=== PATIENT | male | born 1950 | race Caucasian/White ===

== ENCOUNTER → 2017-09-26 | Outpatient (CLI) | payer OTHER, MEDICARE | LOC: FIMAGING 07:59 | PROVIDERS: ATTEND Internal Medicine Critical Care Medicine | DX: J43.2 Centrilobular emphysema (principal); I25.10 Atherosclerotic heart disease of native coronary artery without angina pectoris ==

== ENCOUNTER → 2017-10-04 | Outpatient (CLI) | payer OTHER, MEDICARE | LOC: BMCIMAGING 11:20 | PROVIDERS: ATTEND Family Medicine | DX: M79.642 Pain in left hand (principal) ==

== ENCOUNTER → 2017-12-30 | Outpatient (CLI) | payer OTHER, MEDICARE | LOC: BMCIMAGING 09:40 | PROVIDERS: ATTEND Orthopaedic Surgery Hand Surgery | DX: M11.842 Other specified crystal arthropathies, left hand (principal) ==

== ENCOUNTER 2018-06-07 06:18 | Emergency (ER) | payer OTHER, MEDICARE ==
[2018-06-07] MEDS ORDERED: NS 1,000 ML IV ONE (06:29)
[2018-06-07 07:00] LABS: PLATELET COUNT 254 10^3/uL (150-400)
--- NOTE | 2018-06-07 07:16 | EDPHY ---
H & P Time Seen by Provider: 06/07/18 07:08 HPI/ROS: CHIEF COMPLAINT: right flank pain HISTORY OF PRESENT ILLNESS: The patient is a 67-year-old male with a history of COPD who presents emergency department with right flank pain. His pain started around 5:00 a.m.. He described pain in his right flank radiating to the front of his abdomen. It does go into his right groin. He has no dysuria frequency. No hematuria. It is not worse with movement. He has no weakness or numbness. He has no previous back injury. He did not sustain any trauma. He has had no previous kidney stones. The no fevers or chills. No cough or shortness of breath. REVIEW OF SYSTEMS: 10 systems were reveiwed and are negative with the exception of the elements mentioned in the history of present illness. Past Medical/Surgical History: Includes COPD Past surgical history: Noncontributory Social history: Patient smokes Smoking Status: Light smoker Physical Exam: 36.8, 140/77, 71, 17, 92% on room GENERAL: Well-appearing, in no acute distress, alert. HEENT: Eyes normal to inspection, normal pharynx, no signs of dehydration. NECK: Normal, supple. RESPIRATORY: Clear to auscultation bilaterally, no rales, rhonchi or wheezing. CVS: Regular rate and rhythm, no rubs, murmurs, or gallops. ABDOMEN: Soft, nontender, nondistended, no organomegaly. BACK: Normal to inspection, no CVA tenderness. SKIN: Normal color, no rash, warm, dry. No pallor. EXTREMITIES: No pedal edema, no calf tenderness, no Homans sign or cords, no joint swelling. NEURO/PSYCH: Alert and oriented, normal mood and affect, normal motor sensory exam. Constitutional: Initial Vital Signs Temperature (C) 36.8 C 06/07/18 06:21 Heart Rate 71 06/07/18 06:21 Respiratory Rate 17 06/07/18 06:21 Blood Pressure 140/77 H 06/07/18 06:21 O2 Sat (%) 92 06/07/18 06:21 O2 Delivery Mode Room Air Allergies/Adverse Reactions: No Known Allergies Allergy (Unverified 06/07/18 06:21) Home Medications: Medication Instructions Recorded Tamsulosin HCl [Flomax] 0.4 mg PO DAILY #4 cap 06/07/18 oxyCODONE/APAP 5/325 [Percocet 1 - 2 tab PO Q4PRN PRN #11 tab 06/07/18 5/325 (*)] Medical Decision Making ED Course/Re-evaluation: In the emergency department discussed possible etiologies with the patient. I answered all of his questions. IV was placed. Laboratory studies were obtained. Patient was given Toradol 30 mg IV. The patient consented CT imaging. Patient's UA reveals red cells. White count and hematocrit are normal. Chemistry is pending. The CT: Please refer the dictated report by Dr. So. Patient has a 5 mm stone just above the right UVJ. There is mild hydro. I discussed the results with the patient. I answered all his questions. On recheck the patient had no complaints. His abdominal and flank pain have resolved. Abdomen is soft, nontender nondistended. I discussed the diagnosis of kidney stone and expectations. The patient will be discharged with Flomax and Percocet. He understands to take ibuprofen 3 times daily. He was given a Flomax prior to leaving the emergency department. Differential Diagnosis: My differential includes but is not limited to kidney stone, urinary tract infection, pyelonephritis, pneumonia, pulmonary embolus, small-bowel obstruction , perforation, cholecystitis, cholangitis, pancreatitis - Data Points Laboratory Results: Laboratory Results 06/07/18 06:48 06/07/18 Unknown 06/07/18 06/07/18 06/07/18 Unknown 06:48 06:45 WBC 8.14 10^3/uL 10^3/uL (3.80-9.50) RBC 5.65 10^6/uL 10^6/uL (4.40-6.38) Hgb 17.5 g/dL g/dL (13.7-17.5) Hct 52.2 % H % (40.0-51.0) MCV 92.4 fL fL (81.5-99.8) MCH 31.0 pg pg (27.9-34.1) MCHC 33.5 g/dL g/dL (32.4-36.7) RDW 13.8 % % (11.5-15.2) Plt Count 254 10^3/uL 10^3/uL (150-400) MPV 8.9 fL fL (8.7-11.7) Neut % (Auto) 50.0 % % (39.3-74.2) Lymph % (Auto) 36.7 % % (15.0-45.0) Yell % (Auto) 10.0 % % (4.5-13.0) Eos % (Auto) 2.6 % % (0.6-7.6) Baso % (Auto) 0.5 % % (0.3-1.7) Nucleat RBC Rel Count 0.0 % % (0.0-0.2) Absolute Neuts (auto) 4.07 10^3/uL 10^3/uL (1.70-6.50) Absolute Lymphs (auto) 2.99 10^3/uL 10^3/uL (1.00-3.00) Absolute Monos (auto) 0.81 10^3/uL H 10^3/uL (0.30-0.80) Absolute Eos (auto) 0.21 10^3/uL 10^3/uL (0.03-0.40) Absolute Basos (auto) 0.04 10^3/uL 10^3/uL (0.02-0.10) Absolute Nucleated RBC 0.00 10^3/uL 10^3/uL (0-0.01) Immature Gran % 0.2 % % (0.0-1.1) Immature Gran # 0.02 10^3/uL 10^3/uL (0.00-0.10) Sodium 140 mEq/L mEq/L (135-145) Potassium 4.6 mEq/L mEq/L (3.5-5.2) Chloride 107 mEq/L mEq/L (97-110) Carbon Dioxide 26 mEq/l mEq/l (22-31) Anion Gap 7 mEq/L mEq/L (6-14) BUN 16 mg/dL mg/dL (7-23) Creatinine 0.8 mg/dL mg/dL (0.7-1.3) Estimated GFR > 60 Glucose 132 mg/dL H mg/dL (70-100) Calcium 9.2 mg/dL mg/dL (8.5-10.4) Total Bilirubin Pending Conjugated Bilirubin Pending Unconjugated Bilirubin Pending AST Pending ALT Pending Alkaline Phosphatase Pending Total Protein Pending Albumin Pending Lipase Pending Urine Color Urine Appearance Urine pH Ur Specific [place] Urine Protein Urine Ketones Urine Blood Urine Nitrate Urine Bilirubin Urine Urobilinogen Ur Leukocyte Esterase Urine RBC Urine WBC Ur Epithelial Cells Urine Mucus Urine Glucose 06/07/18 06:30 WBC RBC Hgb Hct MCV MCH MCHC RDW Plt Count MPV Neut % (Auto) Lymph % (Auto) Yell % (Auto) Eos % (Auto) Baso % (Auto) Nucleat RBC Rel Count Absolute Neuts (auto) Absolute Lymphs (auto) Absolute Monos (auto) Absolute Eos (auto) Absolute Basos (auto) Absolute Nucleated RBC Immature Gran % Immature Gran # Sodium Potassium Chloride Carbon Dioxide Anion Gap BUN Creatinine Estimated GFR Glucose Calcium Total Bilirubin Conjugated Bilirubin Unconjugated Bilirubin AST ALT Alkaline Phosphatase Total Protein Albumin Lipase Urine Color YELLOW Urine Appearance MODERATELY TURBID Urine pH 5.0 (5.0-7.5) Ur Specific [place] 1.024 (1.002-1.030) Urine Protein 1+ H (NEGATIVE) Urine Ketones NEGATIVE (NEGATIVE) Urine Blood 3+ H (NEGATIVE) Urine Nitrate NEGATIVE (NEGATIVE) Urine Bilirubin NEGATIVE (NEGATIVE) Urine Urobilinogen NEGATIVE EU EU (0.2-1.0) Ur Leukocyte Esterase NEGATIVE (NEGATIVE) Urine RBC 50-182 /hpf H /hpf (0-3) Urine WBC 0-1 /hpf /hpf (0-3) Ur Epithelial Cells TRACE /lpf /lpf (NONE-1+) Urine Mucus TRACE /lpf /lpf (NONE-1+) Urine Glucose NEGATIVE (NEGATIVE) Medications Given: Discontinued Medications Sodium Chloride (Ns) 1,000 mls @ 0 mls/hr IV EDNOW ONE; Wide Open PRN Reason: Protocol Stop: 06/07/18 06:30 Last Admin: 06/07/18 06:45 Dose: 1,000 mls Ketorolac Tromethamine (Toradol) 30 mg IVP EDNOW ONE Stop: 06/07/18 07:18 Last Admin: 06/07/18 07:22 Dose: 30 mg Departure - Departure Disposition: Home, Routine, Self-Care Clinical Impression: Right flank pain Condition: Good Instructions: Flank Pain (ED), Kidney Stones (ED) Additional Instructions: Take ibuprofen 3 times daily. For breakthrough pain use your Percocet. Take Flomax daily. Call Dr. Hayward is office on [address] to make the next available appointment. Return the emergency department with worsening symptoms or concerns. When you urinate, void through a strainer and save the stone if you find it. Referrals: Patient,NotPresent [Unknown] - As per Instructions Ephraim Hayward MD [Medical Doctor] - 3-4 days, if not improved Prescriptions: oxyCODONE/APAP 5/325 [Percocet 5/325 (*)] 1 - 2 tab PO Q4PRN PRN #11 tab PRN Reason: For Moderate To Severe Pain Tamsulosin HCl [Flomax] 0.4 mg PO DAILY #4 cap
[2018-06-07] MEDS ORDERED: KETOROLAC 30 MG/1 ML SDV IVP ONE (07:17)
[2018-06-07] MEDS ORDERED: TAMSULOSIN HCL 0.4 MG CAP PO ONE (08:06)
[2018-06-07 08:14] VITALS: BP 110/65
== END 2018-06-07 08:22 | disposition home or self-care (01) ==
DX: R10.9 Unspecified abdominal pain (principal); J44.9 Chronic obstructive pulmonary disease, unspecified; E86.9 Volume depletion, unspecified; F17.200 Nicotine dependence, unspecified, uncomplicated
CPT/HCPCS: 74176; 96361; 96374; 99285; J1885

== ENCOUNTER 2018-06-09 18:39 | Emergency (ER) | payer OTHER, MEDICARE ==
--- NOTE | 2018-06-09 19:21 | EDPHY ---
H & P Stated Complaint: Known kidney stone ([employer]), stagnant, pain up, no bleeding Time Seen by Provider: 06/09/18 19:20 HPI/ROS: CHIEF COMPLAINT: Worsening renal colic HISTORY OF PRESENT ILLNESS: The patient was diagnosed with a 5 mm distal right ureteral stone in the emergency department 2 days ago. The patient has been taking Flomax, ibuprofen and Percocet at home. The patient presents to the ED today with complaints of worsening pain. The patient did follow up with Urology and was evaluated by the physician program services assistant today. The patient reports his pain is currently a 4/10. The patient denies any fever. He denies any additional acute complaints. REVIEW OF SYSTEMS: A comprehensive 10 point review of systems is otherwise negative aside from elements mentioned in the history of present illness. Source: Patient Exam Limitations: No limitations - Personal History Current Tetanus/Diphtheria Vaccine: Yes - Medical/Surgical History Hx Asthma: No Hx Chronic Respiratory Disease: Yes Hx Diabetes: No Hx Cardiac Disease: No Hx Renal Disease: No Hx Cirrhosis: No Hx Alcoholism: No Hx HIV/AIDS: No Hx Splenectomy or Spleen Trauma: No Other PMH: COPD - Social History Smoking Status: Light smoker - Physical Exam Exam: General Appearance: Alert, no distress Eyes: Pupils equal and round no pallor or injection ENT, Mouth: Mucous membranes moist Respiratory: There are no retractions, lungs are clear to auscultation Cardiovascular: Regular rate and rhythm Gastrointestinal: Tenderness to palpation right mid quadrant, right CVA tenderness noted Neurological: 5/5 strength noted all 4 extremities Skin: Warm and dry, no rashes Musculoskeletal: Neck is supple nontender Extremities: symmetrical, full range of motion Constitutional: Initial Vital Signs Temperature (C) 36.3 C 06/09/18 18:55 Heart Rate 67 06/09/18 18:55 Respiratory Rate 18 06/09/18 18:55 Blood Pressure 152/77 H 06/09/18 18:55 O2 Sat (%) 91 L 06/09/18 18:55 O2 Delivery Mode Room Air Allergies/Adverse Reactions: No Known Allergies Allergy (Verified 06/09/18 18:55) Home Medications: Medication Instructions Recorded Tamsulosin HCl [Flomax] 0.4 mg PO DAILY #4 cap 06/07/18 oxyCODONE/APAP 5/325 [Percocet 1 - 2 tab PO Q4PRN PRN #11 tab 06/07/18 5/325 (*)] Medical Decision Making - Diagnostics Imaging Results: Imaging Impressions Abdomen X-Ray 06/09/18 19:23 Impression: 1. No definite correlate for the distal right ureteral stone on the recent CT, which was also difficult to visualize on the lip reading teacher film from the CT. 2. Constipation. ED Course/Re-evaluation: I reviewed the results of the patient's prior CT scan. The patient received 15 mg of IV Toradol. I re-evaluated the patient at 9:00 p.m.. He reports he is pain free at this point time. The patient was offered admission to the hospital however he prefers to go home. I have encouraged him to continue to use NSAIDs at home. The patient was given a short course of Ativan as he was having some difficulty sleeping last night. Patient does understand that he can return to the emergency department at any time should he have uncontrolled pain or reconsider admission to the hospital. The patient will follow up as scheduled with Dr. Hayward. Differential Diagnosis: Differential diagnosis considered includes renal failure, urinary tract infection, renal colic - Data Points Medications Given: Discontinued Medications Ketorolac Tromethamine (Toradol) 15 mg IVP EDNOW ONE Stop: 06/09/18 19:38 Last Admin: 06/09/18 19:56 Dose: 15 mg Departure - Departure Disposition: Home, Routine, Self-Care Clinical Impression: Renal colic on right side Condition: Good Instructions: Kidney Stones (ED), Lorazepam (By mouth) Additional Instructions: 1. Take Ibuprofen or Motrin 600 mg by mouth three times a day. 2. Percocet as needed for severe pain 3. Flomax as directed 4. Zofran as needed for nausea 5. Strain urine as directed 6. Return to the Emergency Department for intractable pain, fever or vomiting. 7. Followup with the urologist you have been referred to for unimproved symptoms. 8. 1 mg Ativan tablet as needed at night for insomnia Referrals: Ubaldo Biggs MD [Primary Care Provider] - As per Instructions
[2018-06-09] MEDS ORDERED: KETOROLAC 15 MG/1 ML SDV IVP ONE (19:37)
[2018-06-09] MEDS ORDERED: LORAZEPAM 1 MG PREPACK#4 BTL TAKEHOME ONE (20:51)
[2018-06-09 21:13] VITALS: BP 122/79
== END 2018-06-09 21:10 | disposition home or self-care (01) ==
DX: N20.1 Calculus of ureter (principal)
CPT/HCPCS: 74018; 96374; 99284; J1885